=== PATIENT | female | born 1980 | race Two or more races ===

== ENCOUNTER 2025-01-08 12:17 | Emergency (ER) | payer OTHER ==
[~2025-01-08] VITALS: Ht 167.6 cm; Wt 68.0 kg
[2025-01-08] MEDS ORDERED: KETOROLAC TROMETHAMINE 15 MG/ML VIAL ONE (14:03)
[2025-01-08] MEDS ORDERED: MORPHINE SULFATE INJ 2 MG/ML DISP.SYRIN ONE (14:04)
[2025-01-08] MEDS: MORPHINE SULFATE INJ 2 MG/ML DISP.SYRIN IV ONE (14:56)
[2025-01-08] MEDS: KETOROLAC TROMETHAMINE 15 MG/ML VIAL IV ONE (14:58)
[2025-01-08 15:02] LABS: BASOPHILS % (AUTO) 0.4 % (0.0-2.0); EOSINOPHILS # (AUTO) 0.2 K/uL (0.0-0.7); EOSINOPHILS % (AUTO) 3.1 % (0.0-6.0); HEMATOCRIT 40 % (33-45); HEMOGLOBIN 13.8 g/dL (11.5-14.8); LYMPHOCYTES # (AUTO) 2.1 K/uL (0.8-4.8); LYMPHOCYTES % (AUTO) 36.7 % (20.0-44.0); MEAN CORPUSCULAR HEMOGLOBIN 31 PG (26.0-33.0); MEAN CORPUSCULAR HGB CONC 34 g/dl (31.0-36.0); MEAN CORPUSCULAR VOLUME 92 fL (82-100); MONOCYTES # (AUTO) 0.3 K/uL (0.1-1.30); MONOCYTES % (AUTO) 5.8 % (2.0-12.0); NEUTROPHILS # (AUTO) 3.1 K/uL (1.8-8.9); PLATELET COUNT (AUTO) 208 K/uL (150-450); RED BLOOD CELL COUNT(AUTO) 4.38 MIL/uL (4.0-5.2); RED CELL DISTRIBUTION WIDTH 12.6 % (11.5-15.0); WHITE BLOOD COUNT (AUTO) 5.7 K/uL (4.3-11.0)
[2025-01-08 15:14] LABS: CALCIUM, SERUM 9.4 mg/dL (8.5-10.1); CREATININE 0.6 mg/dL (0.6-1.3); POTASSIUM 3.6 mmol/L (3.5-5.1)
[2025-01-08] MEDS ORDERED: CT SWABBABLE VALVE TRANS SET 1 EA INFUS.SET MC ONE (15:49)
[2025-01-08] MEDS ORDERED: IV NS 0.9% 250 ML IV ONE (15:49)
[2025-01-08] MEDS ORDERED: IOHEXOL-300 100 ML VIAL IV ONE (15:49)
[2025-01-08 19:50] VITALS: BP 122/70; TEMP 97.9; O2SAT 99
== END 2025-01-08 19:53 | disposition home or self-care (01) ==
LOC: ER 12:26
DX: M54.9 Dorsalgia, unspecified (principal); M16.11 Unilateral primary osteoarthritis, right hip; Z96.641 Presence of right artificial hip joint
CPT/HCPCS: 99285; 72132; 96374; 96375; 85025; 80048; 84703; 36415; J1885; J7050; J2270; Q9967